=== PATIENT | female | born 1995 | race Caucasian/White ===

== ENCOUNTER 2024-06-28 21:28 | Emergency (ER) | payer BC, SELFPAY ==
[2024-06-28 21:36] VITALS: BP 133/93
[2024-06-28 22:04] LABS: % Basophils 0.7 % (0-2); % Eosinophils 0.5 % (0-6); % Immature Granulocytes 0.5 % (0-0.5); % Lymphocytes 22.3 % (20.5-51.1); % Monocytes 8.6 % (1.7-9.3); % Neutrophils 67.4 % (42.2-75.2); Absolute Basophils 0.1 10^3/uL (0-0.2); Absolute Lymphocytes 1.9 10^3/uL (1.2-3.4); Absolute Monocytes 0.7 10^3/uL (0.1-0.6); Absolute Neutrophils 5.7 10^3/uL (1.4-6.5); Hematocrit 36.9 % (37.0-47.0); Hemoglobin 12.8 g/dL (12.0-16.0); Mean Corp Hgb Conc. 34.7 g/dL (33.0-37.0); Mean Corpuscular Hgb 30.3 pg (27.0-31.0); Mean Corpuscular Volume 87.2 fL (81.0-99.0); Mean Platelet Volume 9.9 fL (7.4-10.4); Nucleated Red Blood Cells % 0 %; Platelet Count 289 10^3/uL (130-400); Red Blood Cell Count 4.23 10^6/uL (4.20-5.40); White Blood Cell Count 8.5 10^3/uL (4.8-10.8)
[2024-06-28 22:20] LABS: HCG, Serum Qualitative Screen Negative
[2024-06-28 22:23] LABS: ALT (SGPT) 21 U/L (0-35); AST (SGOT) 26 U/L (14-36); Albumin 4.6 g/dl (3.5-5.0); Alkaline Phosphatase 53 U/L (38-126); Blood Urea Nitrogen 18 mg/dl (7-17); Calcium 9.3 mg/dl (8.4-10.2); Carbon Dioxide 28 mmol/L (22-30); Chloride 102 mmol/L (98-107); Glucose 94 mg/dl (70-99); Potassium 4.1 mmol/L (3.5-5.1); Sodium 139 mmol/L (135-145); Total Bilirubin 0.2 mg/dl (0.2-1.3); eGFR > 60.00
--- NOTE | 2024-06-28 22:37 | ED.GENMED ---
History of Present Illness
General
Chief Complaint: Abdominal Pain
Source: patient
Time Seen by Provider: 06/28/24 22:24
History of Present Illness
History of Present Illness:
29-year-old female presents emergency department with complaints of left lower quadrant mild pain described as 'pressure' that started 1 to 2 days ago and continues. The pain comes and goes without specific provoking or relieving factors, is it is
without radiation. She denies associated fever, chills, nausea, vomiting, anorexia, back pain, urinary symptoms, vaginal bleeding or discharge, constipation. She has been eating and drinking as usual. Patient wonders whether or not her symptoms
are related to her diagnosis of PCOS. Her last menstrual cycle began on April 07 however she does not think she is because her periods are typically staggered/irregular she is sexually active not always using contraception and I did
discuss the importance of persistent contraception if she does not intend to get
Past History
Past History
ED Past Medical History: Other (PCOS, ADHD, depression anxiety)
ED Past Surgical History: None
Social History
Tobacco: Smoker
Alcohol: Occasional
Drug: None
Personal: Partner
Phy Exam
Physical Exam
Physical Exam:
GENERAL: Alert , in no apparent distress
EYE: pupils equal and reactive
NECK: Supple, no significant adenopathy.
ENT: o/p clr, mmm.
CARDIAC: Regular rate and rhythm .
LUNGS: Clear breath sounds bilaterally, no acute respiratory distress, no wheezes/rales/rhonchi
ABDOMEN: Soft, very very mild left lower quadrant tenderness, no r/g, no cvat
NEUROLOGICAL: Alert and oriented, no focal neuro deficits
SKIN: Warm and dry, skin intact.
MUSCULOSKELETAL: No edema, well perfused.
PSYCH: Normal and appropriate interaction.
Course
Orders/Labs/Results
Orders:
Orders
06/28/24 21:41
Test Result ONCE
06/28/24 21:53
Complete Blood Count/With Diff Urgent
Comprehensive Metabolic Panel Urgent
HCG, Serum Qualitative Screen Urgent
06/28/24 22:36
US Pelvis Only (non-obstetric) Urgent
Comment:
Reason For Exam: hx pcos, llq pain
Abnormal Lab Results
06/28/24
21:53
Hct 36.9 L %
(37.0-47.0)
Absolute Monos (auto) 0.7 H 10^3/uL
(0.1-0.6)
BUN 18 H mg/dl
(7-17)
06/28/24 21:53
06/28/24 21:53
Vital Signs
Initial and Last Documented VS:
Initial Vital Signs
Temp Pulse Resp BP Pulse Ox
98.4 F 95 18 133/93 98
06/28/24 21:36 06/28/24 21:36 06/28/24 21:36 06/28/24 21:36 06/28/24 21:36
Last Documented Vital Signs
Temp Pulse Resp BP Pulse Ox
98.4 F 95 18 133/93 98
06/28/24 21:36 06/28/24 21:36 06/28/24 21:36 06/28/24 21:36 06/28/24 21:36
*Critical Care Note
Total Time (30-74mins, 75-104mins- exclusive of procedures): Not Applicable
Update Note
Update Note:
Patient presents to the Emergency Department with _left lower quadrant tenderness
Number and Complexity of Problems Addressed at the Encounter
� Chronic conditions affecting care:
� Acute Exacerbation and/or Progression of Chronic Illness:
� Differential Diagnosis includes: But not limited to ectopic , ovarian cyst, diverticulitis, kidney stone, etc. etc.
Amount and/or Complexity of Data to be Reviewed and Analyzed
� I performed an independent evaluation of and my interpretation is:
EKG:
CT:
Xrays:
Laboratory Studies: Generally unremarkable, hCG negative
Other:Us uterus/ovaries nl in countour and echogenicity, endometrial canal 6.4 mm, small bilt ovarian follicles, ovarian blood seth wnoted bilaterally
� Review of other/old records reveals:
� Clinical information was obtained by an independent historian: Partner who is bedside
� Prescriptions/Medications Considered but not given:
� Further testing considered but not performed:
Risk of Complications and/or Morbidity or Mortality of Patient Management
� Social determinants of health affecting care:
� Discussion with other providers (PCP, Hospitalists, Consultants, etc):
� Escalation of care including admission/observation vs risk of discharge considered:Highly doubt acute intrabd/pelvic pathology given nonspecifc sxs, well appearings, unremarkable w/u. Clinically not suspicious for acute
infectious abd process (ex. appy ex divertic) given min ttp, etc. Kidney stone also very unlikely, no prior hx of, atypc sxs, etc. Will ask pt for urine sample, if wnl likely d/c candidat leonor abdalla f/u.
Discussed with patient and her partner her findings here, and recommendation for urine analysis however she declines, stating she feels fine and would like to follow-up as an outpatient.
ED Attending Note
-
Portions of this chart may have been created with voice recognition software.� Occasional wrong word or��sound alike� substitutions may have occurred due to the inherent limitations of voice recognition software.
Discharge Plan
Departure
Patient Disposition: Home (Routine Discharge)
Date of Disposition: 06/29/24
Time of Disposition: 00:31
Patient with high blood pressure during this ER visit?: Yes
Condition: Good
Discharge Problem:
Abdominal pain
Instructions: Abdominal Pain, BLOOD PRESSURE
Referrals:
NONE,* [Family Provider] -
Activity Restrictions/Additional Instructions:
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 IF YOU DEVELOP WORSENING NEW OR RECURRENT PAIN, BLEEDING, FEVER, LOSS OF APPETITE, VOMITING, GET WORSE, DO NOT GET BETTER, OR OTHER WORRISOME SIGNS, PLEASE RETURN TO THE ER IMMEDIATELY.
Interventions
Interventions:
*Risk Screen - Suicide Last Done: 06/28/24 22:58
*General Assessment Last Done: 06/28/24 22:58
*Neglect/Abuse Screening Last Done: 06/28/24 22:58
*ED COVID-19 Vaccine History Last Done: 06/28/24 22:58
OE-Lupjyn-Tclswrhsqd Assessment Last Done: 06/28/24 22:57
Discharge Date and Time
Print Language: SINHALA
[2024-06-29 00:35] VITALS: BP 138/78
== END 2024-06-29 00:35 | disposition home or self-care (01) ==
LOC: EMR 21:28
PROVIDERS: Emergency Medicine; EMERGENCY PHYSICIAN Emergency Medicine
DX: R10.32 Left lower quadrant pain (principal); E28.2 Polycystic ovarian syndrome; F17.200 Nicotine dependence, unspecified, uncomplicated
CPT/HCPCS: 99284; 76856; 80053; 84703; 85025

== ENCOUNTER 2025-01-22 02:15 | Emergency (ER) | payer BC, SELFPAY ==
[2025-01-22 02:17] VITALS: BP 136/93
[2025-01-22 04:00] LABS: HCG, Urine Qualitative Screen Negative
[2025-01-22 04:10] LABS: Amphetamines Positive (Negative); Barbiturates Negative (Negative); Benzodiazepines Negative (Negative); Buprenorphine Negative (Negative); Cocaine Positive (Negative); Marijuana Negative (Negative); Methadone Negative (Negative); Methamphetamines Negative (Negative); Opiates Negative (Negative); Phencyclidine Negative (Negative); Tricyclic Antidepressants Negative (Negative)
[2025-01-22 04:30] LABS: Fentanyl, Urine Negative (Negative)
[2025-01-22 05:42] LABS: % Basophils 0.8 % (0-2); % Eosinophils 0.6 % (0-6); % Immature Granulocytes 0.7 % (0-0.5); % Lymphocytes 15.2 % (20.5-51.1); % Monocytes 7.9 % (1.7-9.3); % Neutrophils 74.8 % (42.2-75.2); Absolute Basophils 0.1 10^3/uL (0-0.2); Absolute Eosinophils 0.1 10^3/uL (0-0.7); Absolute Immature Granulocytes 0.1 10^3/uL (0-0.05); Absolute Lymphocytes 1.6 10^3/uL (1.2-3.4); Absolute Monocytes 0.8 10^3/uL (0.1-0.6); Absolute Neutrophils 7.9 10^3/uL (1.4-6.5); Hematocrit 40.1 % (37.0-47.0); Hemoglobin 13.7 g/dL (12.0-16.0); Mean Corp Hgb Conc. 34.2 g/dL (33.0-37.0); Mean Corpuscular Hgb 30.7 pg (27.0-31.0); Mean Corpuscular Volume 89.9 fL (81.0-99.0); Mean Platelet Volume 9.8 fL (7.4-10.4); Nucleated Red Blood Cells % 0 %; Platelet Count 453 10^3/uL (130-400); Red Blood Cell Count 4.46 10^6/uL (4.20-5.40); Red Cell Dist. Width 13.1 % (11.5-14.5); White Blood Cell Count 10.6 10^3/uL (4.8-10.8)
[2025-01-22 05:51] LABS: HCG, Serum Qualitative Screen Negative
[2025-01-22 05:56] LABS: ALT (SGPT) 18 U/L (0-35); AST (SGOT) 21 U/L (14-36); Albumin 4.6 g/dl (3.5-5.0); Alkaline Phosphatase 60 U/L (38-126); Blood Urea Nitrogen 10 mg/dl (7-17); Calcium 9.9 mg/dl (8.4-10.2); Carbon Dioxide 26 mmol/L (22-30); Chloride 104 mmol/L (98-107); Glucose 100 mg/dl (70-99); Potassium 4.6 mmol/L (3.5-5.1); Sodium 139 mmol/L (135-145); Total Bilirubin 0.5 mg/dl (0.2-1.3); Total Protein 7.7 g/dl (6.3-8.2); eGFR > 60.00
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
[2025-01-22] MEDS: ROCEPHIN 500 MG IM (07:15)
[2025-01-22] MEDS: FLAGYL 500 MG PO (07:15)
[2025-01-22] MEDS: PLAN B ONE-STEP, NEXT CHOICE 1 TABLET PO (07:15)
[2025-01-22] MEDS: VIBRAMYCIN 100 MG PO (07:15)
[2025-01-22 07:21] VITALS: BP 110/76
== END 2025-01-22 07:15 | disposition home or self-care (01) ==
LOC: EMR 02:15
PROVIDERS: EMERGENCY PHYSICIAN Student in an Organized Health Care Education/Training Program
DX: Z04.41 Encounter for examination and observation following alleged adult rape (principal); T76.21XA Adult sexual abuse, suspected, initial encounter; R03.0 Elevated blood-pressure reading, without diagnosis of hypertension; F32.A Depression, unspecified; F41.9 Anxiety disorder, unspecified; E28.2 Polycystic ovarian syndrome; F90.9 Attention-deficit hyperactivity disorder, unspecified type; F17.200 Nicotine dependence, unspecified, uncomplicated
CPT/HCPCS: 99284; 70491; 80053; 80306; 80307; 81025; 84703; 85025; Q9967